=== PATIENT | female | born 1960 | race Caucasian/White ===

== ENCOUNTER 2016-10-01 15:18 | Observation (INO) | payer BC, MEDICARE ==
[~2016-10-01] VITALS: Ht 167.6 cm; Wt 88.5 kg
[2016-10-01] MEDS ORDERED: ASPIRIN 81 MG CHEW TAB ONE (15:46)
[2016-10-01] MEDS ORDERED: MORPHINE 2 MG/ML SYR ONE ×2 (16:11→18:40)
[2016-10-01] MEDS ORDERED: DILAUDID 1 MG/ML AMP ONE (19:05)
[2016-10-01] MEDS ORDERED: FONDAPARINUX 2.5 MG SYR SUBQ STA (19:27)
[2016-10-01] MEDS ORDERED: NITROGLYCERIN 2% OINT 1 INCH PKT TOPICAL STA (19:27)
[2016-10-01] MEDS ORDERED: TEMAZEPAM 7.5 MG CAP PO PRN (19:30)
[2016-10-01] MEDS ORDERED: SALINE FLUSH 10 ML FLUSH PRN (19:30)
[2016-10-01] MEDS ORDERED: ALU/MAG/SIM 30 ML UDC PO PRN (19:30)
[2016-10-01] MEDS ORDERED: LORAZEPAM 0.5 MG TAB PO PRN (19:30)
[2016-10-01] MEDS ORDERED: DOCUSATE SOD 100 MG CAP PO PRN (19:30)
[2016-10-01] MEDS ORDERED: TEMAZEPAM 15 MG CAP PO PRN (19:30)
[2016-10-01] MEDS ORDERED: ONDANSETRON 4 MG VIAL IV PRN (19:30)
[2016-10-01] MEDS ORDERED: ACETAMINOPHEN 325 MG TAB PO PRN (19:30)
[2016-10-01] MEDS ORDERED: NITROGLYCERIN SL 0.4 MG TAB SL PRN (19:30)
[2016-10-01] MEDS ORDERED: SODIUM CHLORIDE 0.9% 1,000 ML ONE (19:45)
[2016-10-01] MEDS ORDERED: FONDAPARINUX 2.5 MG SYR SUBQ ONE (19:57)
[2016-10-01] MEDS ORDERED: NITROGLYCERIN 2% OINT 1 INCH PKT TOPICAL ONE (19:58)
[2016-10-01] MEDS: MORPHINE 2 MG/ML SYR IV PRN ×2 (21:03→22:30)
[2016-10-01] MEDS: SALINE FLUSH 10 ML FLUSH SCH (21:06)
[2016-10-01 21:57] VITALS: BP_SYST 118; RESP 18; TEMP 98
[2016-10-01 21:59] VITALS: Ht 167.6 cm; Wt 88.5 kg
[2016-10-01] MEDS ORDERED: Flu Vaccine Quadrivalent 60 MCG/0.5 ML IM.VACC ONE (22:55)
[2016-10-01 23:21] VITALS: RESP 18
[2016-10-01] MEDS ORDERED: DEXTROSE 50% SYRINGE 50 ML IV PRN (23:45)
[2016-10-01] MEDS ORDERED: GLUCAGON 1 MG VIAL IM PRN (23:45)
[2016-10-02] MEDS: GABAPENTIN 400 MG CAP PO SCH ×2 (00:15→09:56)
[2016-10-02] MEDS: NITROGLYCERIN 2% OINT 1 INCH PKT TOPICAL SCH ×3 (00:15→12:12)
[2016-10-02] MEDS: clonazePAM 0.5 MG TAB PO SCH ×2 (00:16→09:56)
[2016-10-02] MEDS: DULoxetine 30 MG CAP PO SCH ×2 (00:16→09:56)
[2016-10-02] MEDS: MORPHINE 2 MG/ML SYR IV PRN ×4 (02:00→08:27)
[2016-10-02 04:00] VITALS: BP_SYST 136; RESP 18; TEMP 97.9
[2016-10-02] MEDS ORDERED: SODIUM CHLORIDE 0.9% FLUSH BAG 500 ML IV SCH (06:00)
[2016-10-02] MEDS ORDERED: ASPIRIN 81 MG CHEW TAB PO SCH (08:00)
[2016-10-02 08:08] VITALS: BP_SYST 137; RESP 18; TEMP 98.4
[2016-10-02] MEDS: SALINE FLUSH 10 ML FLUSH SCH (09:56)
[2016-10-02 12:14] VITALS: BP_SYST 144; RESP 18; TEMP 98
[2016-10-02 14:23] VITALS: BP_SYST 144; RESP 18; TEMP 98
[2016-10-02] MEDS ORDERED: FONDAPARINUX 2.5 MG SYR SUBQ SCH (20:00)
== END 2016-10-02 12:56 | disposition home or self-care (01) ==
LOC: ENRESERVDT → ENRESERVTM → ENRESERV → ER 15:18 → ENPENDDIS 19:27 → EMR 19:27 → PCU 20:43
PROVIDERS: ADMIT Internal Medicine Cardiovascular Disease; ATTEND Internal Medicine Cardiovascular Disease
CPT/HCPCS: 36415 ×2; 71010 ×2; 80053 ×2; 80061 ×2; 82550 ×2; 82553 ×2; 82947 ×2; 83735 ×2; 84484 ×2; 85025 ×2; 85379 ×2; 85610 ×2; 85730 ×2; 93005 ×2; 94799; 96361 ×2; 96372 ×2; 96374 ×2; 96376 ×2; 97799; 99291; G0378; J1170; J1652; Q2039